=== PATIENT | female | born 1965 | race Caucasian/White ===

== ENCOUNTER 2019-12-05 19:28 | Emergency (ER) | payer SELFPAY ==
--- NOTE | 2019-12-05 20:22 | RAD ---
CHEST ONE VIEW: 12/05/19 HISTORY: Syncope. COMPARISON: None. FINDINGS: The lungs are clear. No pneumothorax. No effusion. Cardiac and mediastinal contours are within normal limits. IMPRESSION: No acute intrathoracic abnormality. POS: HOME
--- NOTE | 2019-12-05 20:27 | RAD ---
RIGHT WRIST THREE VIEW: 12/05/19 HISTORY: Injury. COMPARISON: None. FINDINGS: Intra-articular distal radius fracture seen at the lunate fossa. There is also a transversely oriente d metaphyseal fracture. Minimal dorsal impaction and angulation. A small ulnar styloid tip avulsion f racture. IMPRESSION: Intra-articular distal radius fracture as described. POS: HOME
[2019-12-05 20:44] LABS: Band 13 % (5-11); Hemoglobin 14.3 g/dL (12.0-16.0); Lymphocytes 7 % (21-51); MDiff Complete? YES; Mean Corpuscular HGB CONC 31.8 g/dL (32.0-36.0); Mean Corpuscular Hemoglobin 30.8 pg (27.0-31.0); Mean Corpuscular Volume 96.7 fL (78.0-98.0); Mean Platelet Volume 6.3 fL (7.4-10.4); Monocytes 1 % (0-10); Neutrophil 79 % (42-75); Platelet Count 304 thou/uL (130-400); RBC Distribution Width 12.2 % (11.5-14.5); Red Blood Cell (RBC) Count 4.63 mill/uL (4.20-5.40); White Blood Cell (WBC) Count 16.7 thou/uL (4.8-10.8)
--- NOTE | 2019-12-05 20:45 | RAD ---
RIGHT HAND THREE VIEWS: 12/05/19 HISTORY: Injury. COMPARISON: None. FINDINGS: There is impacted distal radial metaphyseal fracture. Small avulsion fracture tip of the ulnar styloi d. There appears to be intra-articular extension of the distal radius fracture at the lunate fossa. Hand itself appears to be intact. IMPRESSION: 1. Intra-articular distal radius fracture with mild dorsal angulation and impaction. 2. Small ulnar styloid avulsion tip injury. POS: HOME
[2019-12-05 20:53] LABS: ALT (SGPT) 18 U/L (8-55); Albumin 3.5 g/dL (3.5-5.0); Alkaline Phosphatase 78 U/L (40-110); Anion Gap 17 mmol/L (10-20); BUN (Urea Nitrogen) 20 mg/dL (9.8-20.1); Bilirubin, Total 0.2 mg/dL (0.2-1.2); Calc. Creatinine Clearance 0 mL/min (70-130); Calcium 8.5 mg/dL (7.8-10.44); Carbon Dioxide 13 mmol/L (22-29); Chloride 111 mmol/L (98-107); Estimated GFR-MDRD 77; Globulin 3.4 g/dL (2.4-3.5); Glucose 251 mg/dL (70-105); Potassium 5.3 mmol/L (3.5-5.1); Protein, Total 6.9 g/dL (6.0-8.3); Sodium 136 mmol/L (136-145)
[2019-12-05 21:00] LABS: AST (SGOT) 23 U/L (5-34)
[2019-12-05 21:56] LABS: Base Excess-Venous -1.8 mmol/L (-2.0 to 3.0); Bicarbonate (HCO3v) 18.4 mmol/L (22.0-28.0); Calcium, Ionized 0.87 mmol/L (See Comments:); Chloride 108 mmol/L (98-107); Hemoglobin - Calc 14.6 g/dL (12.0-16.0); Potassium 5.9 mmol/L (3.5-5.1); Sodium 131 mmol/L (138-145); T. Carbon Dioxide 19.1 mmol/L (22.0-28.0); vO2 Saturation-calc 99.8 % (60.0-85.0)
[2019-12-05 22:01] LABS: CO2 Tension (PvCO2) 21.5 mmHg (40.0-50.0)
== END 2019-12-05 22:10 | disposition left against medical advice (07) ==
LOC: MADERS 19:28
DX: S52.571A Other intraarticular fracture of lower end of right radius, initial encounter for closed fracture (principal); S52.611A Displaced fracture of right ulna styloid process, initial encounter for closed fracture; E87.3 Alkalosis; E11.649 Type 2 diabetes mellitus with hypoglycemia without coma; E11.9 Type 2 diabetes mellitus without complications; Z79.4 Long term (current) use of insulin; W19.XXXA Unspecified fall, initial encounter
CPT/HCPCS: 36416; 71045; 80053; 82330; 82803; 83735; 83880; 84484; 85025; 93005